=== PATIENT | male | born 1955 | race Asian ===

== ENCOUNTER 2020-10-29 18:45 | Outpatient (CLI) | payer OTHER ==
[2020-10-29 21:49] LABS: PLATELET COUNT 235 K/uL (142-355)
[2020-10-29 22:18] LABS: POTASSIUM 3.9 mmol/L (3.6-5.2)
== END 2020-10-29 22:00 | disposition home or self-care (01) ==
LOC: LAB 18:45
PROVIDERS: ATTEND Nurse Practitioner Family
DX: I10 Essential (primary) hypertension (principal); E78.49 Other hyperlipidemia; K21.9 Gastro-esophageal reflux disease without esophagitis; G62.89 Other specified polyneuropathies; M19.90 Unspecified osteoarthritis, unspecified site; M62.838 Other muscle spasm; I25.10 Atherosclerotic heart disease of native coronary artery without angina pectoris; R42 Dizziness and giddiness; R60.0 Localized edema; J30.2 Other seasonal allergic rhinitis; E83.42 Hypomagnesemia; K04.7 Periapical abscess without sinus; Z79.899 Other long term (current) drug therapy
CPT/HCPCS: 80053; 80061; 82306; 82607; 83036; 84153; 84403; 84439; 84443; 85027